=== PATIENT | female | born 1990 | race Two or more races ===

== ENCOUNTER 2018-09-26 18:57 | Inpatient (IN) | payer OTHER ==
[~2018-09-26] VITALS: Ht 170.2 cm; Wt 117.0 kg
[2018-09-27] MEDS ORDERED: PRENATAL 19 TA1 EAC1 (11:08)
== END 2018-09-29 08:51 | disposition home or self-care (01) | DRG 832 ==
LOC: OB/GYN 18:57
PROVIDERS: ADMIT Obstetrics & Gynecology Maternal & Fetal Medicine
PROC: 4A1HXCZ Monitoring of Products of Conception, Cardiac Rate, External Approach (ICD-10-PCS; principal; 2018-09-27)
DX: O24.414 Gestational diabetes mellitus in pregnancy, insulin controlled (principal); O47.03 False labor before 37 completed weeks of gestation, third trimester; Z34.03 Encounter for supervision of normal first pregnancy, third trimester
CPT/HCPCS: 240

== ENCOUNTER 2018-10-15 14:20 | Outpatient (CLI) | payer OTHER ==
[~2018-10-15 14:20] MED LIST: PRENATAL 19 TA1 EAC1
== END 2018-10-15 15:48 | disposition home or self-care (01) ==
LOC: NST 14:20
DX: Z34.83 Encounter for supervision of other normal pregnancy, third trimester (principal)

== ENCOUNTER 2018-10-29 11:55 | Outpatient (CLI) | payer OTHER | END 2018-10-29 12:42 | disposition home or self-care (01) | LOC: NST 11:55 | DX: Z34.83 Encounter for supervision of other normal pregnancy, third trimester (principal) ==

== ENCOUNTER 2018-10-29 15:06 | Inpatient (IN) | payer OTHER ==
[~2018-10-29] VITALS: Ht 170.2 cm; Wt 119.7 kg
[2018-11-08] MEDS ORDERED: NOVOLIN R100 UNIT/1 IJ ×2 (16:36→16:37)
[2018-11-08] MEDS ORDERED: SYNTHROID50 MCG PO (16:37)
[2018-11-13] MEDS ORDERED: [UNRECOGNIZED DRUG - OTHER] PO (10:01)
== END 2018-11-16 13:02 | DRG 788 ==
LOC: LDR 11-08 15:00 → O/R 11-13 09:30 → OB/GYN 11-13 09:30
PROVIDERS: ADMIT Obstetrics & Gynecology Maternal & Fetal Medicine
PROC: 4A1HXCZ Monitoring of Products of Conception, Cardiac Rate, External Approach (ICD-10-PCS; 2018-11-13)
PROC: 10D00Z1 Extraction of Products of Conception, Low, Open Approach (ICD-10-PCS; principal; 2018-11-13 13:00)
DX: O32.1XX0 Maternal care for breech presentation, not applicable or unspecified (principal); Z3A.37 37 weeks gestation of pregnancy; Z37.0 Single live birth; Z22.330 Carrier of Group B streptococcus

== ENCOUNTER 2018-11-05 12:43 | Outpatient (CLI) | payer OTHER | END 2018-11-05 13:27 | disposition home or self-care (01) | LOC: NST 12:43 | DX: Z34.83 Encounter for supervision of other normal pregnancy, third trimester (principal) ==

== ENCOUNTER 2018-11-08 11:45 | Outpatient (CLI) | payer OTHER ==
[2018-11-08] MEDS ORDERED: NOVOLIN R100 UNIT/1 IJ ×2 (16:36→16:37)
[2018-11-08] MEDS ORDERED: SYNTHROID50 MCG PO (16:37)
== END 2018-11-08 12:40 | disposition home or self-care (01) ==
LOC: NST 11:45
DX: Z34.83 Encounter for supervision of other normal pregnancy, third trimester (principal)

== ENCOUNTER 2022-01-02 15:17 | Outpatient (CLI) | payer OTHER ==
[~2022-01-02 15:17] MED LIST changes: +NOVOLIN R100 UNIT/1 IJ; +SYNTHROID50 MCG PO; +[UNRECOGNIZED DRUG - OTHER] PO
== END 2022-01-02 17:44 | disposition home or self-care (01) ==
LOC: NST 15:17
PROVIDERS: ATTEND Obstetrics & Gynecology Maternal & Fetal Medicine
DX: Z34.83 Encounter for supervision of other normal pregnancy, third trimester (principal)

== ENCOUNTER 2022-02-15 07:45 | Inpatient (IN) | payer OTHER ==
[~2022-02-15] VITALS: Ht 170.2 cm; Wt 3.2 kg
[2022-02-15] MEDS ORDERED: GLYBURIDE2.5 MG PO (08:50)
== END 2022-03-04 13:04 | disposition home or self-care (01) | DRG 788 ==
LOC: OB/GYN 03-01 07:45 → O/R 03-01 08:47 → SURG-SUITE 03-01 08:47 → OB/GYN 03-01 09:50 → SURG-SUITE 03-01 15:02
PROVIDERS: ADMIT Obstetrics & Gynecology Maternal & Fetal Medicine; ATTEND Obstetrics & Gynecology
PROC: 4A1HXCZ Monitoring of Products of Conception, Cardiac Rate, External Approach (ICD-10-PCS; 2022-03-01)
PROC: 10D00Z1 Extraction of Products of Conception, Low, Open Approach (ICD-10-PCS; principal; 2022-03-01 09:50)
DX: O34.211 Maternal care for low transverse scar from previous cesarean delivery (principal); Z3A.39 39 weeks gestation of pregnancy; Z37.0 Single live birth; Z20.822 Contact with and (suspected) exposure to COVID-19

== ENCOUNTER 2025-06-30 09:57 | Outpatient (CLI) | payer OTHER ==
[~2025-06-30 09:57] MED LIST changes: +GLYBURIDE2.5 MG PO
== END 2025-06-30 10:47 | disposition home or self-care (01) ==
LOC: NST 09:57
PROVIDERS: ATTEND Obstetrics & Gynecology Gynecology
DX: Z34.83 Encounter for supervision of other normal pregnancy, third trimester (principal)

== ENCOUNTER 2025-07-31 14:05 | Inpatient (IN) | payer OTHER ==
[~2025-07-31] VITALS: Ht 170.2 cm; Wt 4.1 kg
[2025-07-31 14:23] LABS: BASO % 0.2 % (0.1-1.2); EOS # 0.06 (0.04-0.54); EOS % 0.6 % (0.7-7.0); LYMPH # 2.00 (1.18-3.74); LYMPH % 21.4 % (19.3-53.1); MEAN PLATELET VOLUME 10.80 fl (9.4-12.4); MONO # 0.73 (0.24-0.82); MONO % 7.8 % (4.7-12.5); NEUT # 6.50 (1.56-6.13); NEUT % 69.5 % (34.0-71.1); RED CELL DISTRIBUTION WIDTH 15.0 % (11.6-14.4)
[2025-07-31 14:42] LABS: INR < 0.93
[2025-07-31 14:54] LABS: ALT/SGPT 14.0 U/L (12-78); AST/SGOT 16.0 U/L (15-37); BILIRUBIN TOTAL 0.39 mg/dL (0.3-1.2); BUN CREA RATIO 14.0 (7.0-25.0); CREATININE SERUM 0.63 mg/dL (0.55-1.02); GFR 107.54; GLOBULINA 3.8 G/DL (2.4-3.5); GLUCOSE FASTING 73.0 mg/dL (65-100); OSMOLALITY SERUM 277.0 MOSM/KG (275-295)
[2025-08-07 11:25] VITALS: BP 125/83
[2025-08-07] MEDS ORDERED: OXYTOCIN 10 UNITS/ML VIAL ONE ×2 (11:25→18:37)
[2025-08-07] MEDS ORDERED: ERYTHROMYCIN BASE OPHT 1GM EACH TUBE OP ONE (11:26)
[2025-08-07] MEDS ORDERED: CEFAZOLIN SODIUM 1,000 MG VIAL ONE (12:20)
[2025-08-07] MEDS ORDERED: CITRIC ACID/SODIUM CITRATE 30 ML BLIST.PACK PO ONE (12:20)
[2025-08-07] MEDS ORDERED: MORPHINE SULFATE 4 MG/ML CARTRIDGE IV PRN (17:00)
[2025-08-07] MEDS ORDERED: OXYTOCIN 1,000 ML IV SCH (17:00)
[2025-08-07 21:54] VITALS: BP 133/84
[2025-08-08 00:53] VITALS: BP 138/80
[2025-08-08] MEDS ORDERED: IRON FUM,PS/FOLIC ACID/VITC/B3 1 CAP CAPSULE PO SCH (09:00)
[2025-08-08 09:57] VITALS: BP 146/85
[2025-08-08 12:58] LABS: BASO % 0.2 % (0.1-1.2); EOS # 0.00 (0.04-0.54); EOS % 0.0 % (0.7-7.0); LYMPH # 1.28 (1.18-3.74); LYMPH % 8.3 % (19.3-53.1); MEAN PLATELET VOLUME 10.40 fl (9.4-12.4); MONO # 1.02 (0.24-0.82); MONO % 6.6 % (4.7-12.5); NEUT # 12.95 (1.56-6.13); NEUT % 84.5 % (34.0-71.1); RED CELL DISTRIBUTION WIDTH 15.4 % (11.6-14.4)
[2025-08-08 16:00] VITALS: BP 113/99
[2025-08-09] VITALS: BP 139/83
[2025-08-09] MEDS ORDERED: OxyCODONE HCL 5 MG TABLET (ROXICODONE) PO PRN (06:00)
[2025-08-09 09:55] VITALS: BP 144/84
== END 2025-08-09 11:36 | disposition home or self-care (01) | DRG 785 ==
LOC: O/R 08-07 11:00 → OB/GYN 08-07 11:34
PROVIDERS: ADMIT Obstetrics & Gynecology; ATTEND Obstetrics & Gynecology
PROC: 0UB70ZZ Excision of Bilateral Fallopian Tubes, Open Approach (ICD-10-PCS; 2025-08-07)
PROC: 0DNW0ZZ Release Peritoneum, Open Approach (ICD-10-PCS; 2025-08-07)
PROC: 4A1HXCZ Monitoring of Products of Conception, Cardiac Rate, External Approach (ICD-10-PCS; 2025-08-07)
PROC: 10D00Z1 Extraction of Products of Conception, Low, Open Approach (ICD-10-PCS; principal; 2025-08-07 18:00)
DX: O36.63X0 Maternal care for excessive fetal growth, third trimester, not applicable or unspecified (principal); O24.420 Gestational diabetes mellitus in childbirth, diet controlled; O99.62 Diseases of the digestive system complicating childbirth; K66.0 Peritoneal adhesions (postprocedural) (postinfection); Z37.0 Single live birth; Z3A.39 39 weeks gestation of pregnancy; Z30.2 Encounter for sterilization

== ENCOUNTER 2025-08-06 10:40 | Outpatient (CLI) | payer OTHER | END 2025-08-06 11:27 | disposition home or self-care (01) | LOC: NST 10:40 | PROVIDERS: ATTEND Obstetrics & Gynecology | DX: Z34.83 Encounter for supervision of other normal pregnancy, third trimester (principal) ==